=== PATIENT | female | born 1970 | race Caucasian/White ===

== ENCOUNTER 2021-05-14 12:57 | Emergency (ER) | payer OTHER, BC ==
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
--- NOTE | 2021-05-14 13:54 | CT ---
CT chest Technique: Multiple axial sections through the chest were obtained. Intravenous contrast was not utilized. Reconstructed coronal and sagittal images were obtained. Comparison: No prior chest imaging is available. Findings: Small parenchymal calcification is seen within the left kidney. Cyst is noted within the right kidney measuring 3.5 cm. Surgical clips are seen from prior cholecystectomy. Small to moderate sized hiatal hernia is noted. Prior stomach surgery is noted. No pericardial thickening is seen. Thoracic aorta shows no aneurysm. Mediastinum shows no adenopathy. No axillary adenopathy is seen. Lung window settings were reviewed. No acute parenchymal change is seen. No pleural effusions or pneumothorax are seen. Bone window settings were reviewed which show mild scattered degenerative change within the spine. No acute osseous abnormality is appreciated. Impression: 1. Findings as noted above which are felt to be chronic. 2. Nothing acute is appreciated on noncontrast CT study of the chest. Diagnostic code #2
== END 2021-05-14 14:50 | disposition home or self-care (01) ==
LOC: JD.ED 12:57
DX: S20.212A Contusion of left front wall of thorax, initial encounter (principal); Z72.0 Tobacco use; V49.40XA Driver injured in collision with unspecified motor vehicles in traffic accident, initial encounter
CPT/HCPCS: 71250; 71250-26; 93005; 93010; 99283; 99284-25

== ENCOUNTER 2023-01-15 11:31 | Emergency (ER) | payer BC, MEDICAID ==
[2023-01-15] MEDS ORDERED: HYDROmorphone 1 MG/ML Syringe IM ONE (12:04)
== END 2023-01-15 13:10 | disposition home or self-care (01) ==
LOC: JD.ED 11:31
DX: S42.251A Displaced fracture of greater tuberosity of right humerus, initial encounter for closed fracture (principal); Z86.16 Personal history of COVID-19; Z79.899 Other long term (current) drug therapy; W18.30XA Fall on same level, unspecified, initial encounter
CPT/HCPCS: 73030; 96372; 99283; J1170

== ENCOUNTER 2024-03-27 21:26 | Emergency (ER) | payer MEDICAID, OTHER ==
[2024-03-28] MEDS: Acetaminophen/HYDROcodone 325-5 MG Tab PO ONE (01:01)
[2024-03-28] MEDS: predniSONE 10 MG Tab PO ONE (01:02)
== END 2024-03-28 01:03 | disposition home or self-care (01) ==
LOC: JD.ED 21:26
DX: R07.81 Pleurodynia (principal); R07.89 Other chest pain; J45.909 Unspecified asthma, uncomplicated; Z90.49 Acquired absence of other specified parts of digestive tract; F17.210 Nicotine dependence, cigarettes, uncomplicated; Z79.899 Other long term (current) drug therapy
CPT/HCPCS: 71101-26-LT; 71101-LT; 99283; 99284; A9270-GY; J7512

== ENCOUNTER 2025-08-21 06:47 | Emergency (ER) | payer BC, OTHER ==
[2025-08-21 07:16] LABS: APPEARANCE,URINE SLT CLOUDY (Clear); GLUCOSE,URINE NEGATIVE (Negative); OCCULT BLOOD,URINE 2+ (Negative)
[2025-08-21] MEDS: Ketorolac 15 MG/ML SDV IVPUSH ONE (07:51)
[2025-08-21] MEDS: cefTRIAXone 2 GM in Water For Injection, Sterile 20 ML IVPUSH ONE (07:52)
[2025-08-21] MEDS: Sodium Chloride 0.9% 10 ML Syringe FLUSH PRN (07:52)
[2025-08-21 07:59] LABS: BASOPHILS ABSOLUTE AUTO 0.1 K/mm3 (0.0-0.2); BASOPHILS PERCENT AUTO 1.0 % (0.0-1.0); EOSINOPHILS ABSOLUTE AUTO 0.1 K/mm3 (0.0-0.4); EOSINOPHILS PERCENT AUTO 1.5 % (0.0-6.0); IMMATURE GRAN ABSOLUTE AUTO 0.01 K/mm3 (0.00-0.05); IMMATURE GRAN PERCENT AUTO 0.1 % (0.0-0.4); LYMPHOCYTES ABSOLUTE AUTO 0.9 K/mm3 (1.0-4.8); LYMPHOCYTES PERCENT AUTO 11.1 % (24.0-44.0); MEAN PLATELET VOLUME 9.8 fl (9.4-12.3); MONOCYTES ABSOLUTE AUTO 0.6 K/mm3 (0.0-0.8); MONOCYTES PERCENT AUTO 7.9 % (0.0-8.0); NEUTROPHILS ABSOLUTE AUTO 6.1 K/mm3 (1.8-7.7); NEUTROPHILS PERCENT AUTO 78.4 % (41.0-71.0); NRBC ABSOLUTE 0.00 (0.00-0.02); NRBC PERCENT 0.0 % (0.0-0.2); PLATELET COUNT,PLT 219 K/mm3 (150-400); RED BLOOD CELL COUNT 4.53 M/mm3 (4.10-5.30); WHITE BLOOD CELL COUNT,WBC 7.82 K/mm3 (3.9-11.3)
[2025-08-21 08:30] LABS: A/G RATIO 1.0 (1-2); ALANINE AMINOTRANSFERASE,ALT 20.0 U/L (14-59); ASPARTATE AMNIOTRANSFERASE,AST 14.0 U/L (15-37); BILIRUBIN TOTAL 0.3 mg/dL (0.2-1.0); BLOOD UREA NITROGEN,BUN 11.0 mg/dL (7-18); CARBON DIOXIDE,CO2 25.0 mEq/L (21-32); CHLORIDE,CL 108.0 mEq/L (98-107); CREATININE 0.8 mg/dL (0.55-1.02); EST CRCL DRUG DOSING (CG) 79.21 mL/min; ESTIMATED GFR 86.0 mL/min (>60); GLUCOSE RANDOM 96.0 mg/dL (70-99); POTASSIUM,K 4.1 mEq/L (3.5-5.1); PROTEIN TOTAL,TP 6.6 g/dl (6.4-8.2); SODIUM,NA 142.0 mEq/L (136-145)
== END 2025-08-21 14:25 ==
LOC: JD.ED 06:47
DX: N13.6 Pyonephrosis (principal); J45.909 Unspecified asthma, uncomplicated; Z90.49 Acquired absence of other specified parts of digestive tract; Z79.899 Other long term (current) drug therapy; Z79.51 Long term (current) use of inhaled steroids
CPT/HCPCS: 36415; 74176; 80053; 81001; 83690; 85025; 87086; 96374; 96375; 99285; A4216; J0696; J1885; J2270; J7030; 87088; 87186